=== PATIENT | female | born 1985 | race Caucasian/White ===

== ENCOUNTER 2020-03-29 11:13 | Emergency (ER) | payer MEDICAID ==
[~2020-03-29] VITALS: Ht 157.5 cm; Wt 80.0 kg
[2020-03-29 12:20] LABS: BASO # 0.1 x10^3/uL (0.0-0.2); BASO % 1 % (0-3); EOS # 0.6 x10^3/uL (0.0-0.7); EOS % 6 % (0-3); HEMATOCRIT 44.1 % (36.0-47.0); HEMOGLOBIN 14.7 g/dL (12.0-15.5); LYMPH # 2.4 x10^3/uL (1.0-4.8); LYMPH % 26 % (24-48); MEAN CORPUSCULAR HEMOGLOBIN 31 pg (25-35); MEAN CORPUSCULAR HGB CONC 34 g/dL (31-37); MEAN CORPUSCULAR VOLUME 94 fL (79-100); MONO # 0.8 x10^3/uL (0.0-1.1); MONO % 9 % (0-9); NEUT # 5.4 x10^3uL (1.8-7.7); NEUT % 58 % (31-73); PLATELET COUNT 211 x10^3/uL (140-400); RED BLOOD COUNT 4.71 x10^6/uL (3.50-5.40); RED CELL DISTRIBUTION WIDTH 14.4 % (11.5-14.5); WHITE BLOOD COUNT 9.2 x10^3/uL (4.0-11.0)
[2020-03-29 12:26] LABS: CALCIUM 8.9 mg/dL (8.5-10.1); CREATININE 0.6 mg/dL (0.6-1.0); GFR 113.8; POTASSIUM 3.9 mmol/L (3.5-5.1)
[2020-03-29 12:32] LABS: ALBUMIN 3.5 g/dL (3.4-5.0); ALBUMIN/GLOBULIN RATIO 0.9 (1.0-1.7); TOTAL BILIRUBIN 0.6 mg/dL (0.2-1.0); TOTAL PROTEIN 7.4 g/dL (6.4-8.2)
--- NOTE | 2020-03-29 12:51 | RAD ---
OB <14 WKS W/TV HISTORY: Abdominal cramping, Comparison: None. Findings: Multiple transabdominal sonographic images of the pelvis are submitted. Endometrium measured 0.7 cm in thickness, no intrauterine gestational sac identified. Uterus measured 5.7 x 8.6 x 3.8 cm. Transvaginal ultrasound: Multiple transvaginal sonographic images of the pelvis are submitted. No intrauterine gestational sac is demonstrated. Endometrium is thin about 0.6 cm. Left ovary measured 2.6 x 1.4 x 1.9 cm with normal low resistance vascularity. Right ovary measured 1.2 x 0.6 x 1.4 cm with normal low resistance vascularity and color flow. No free fluid is demonstrated. Impression: 1. Endometrium is thin, no intrauterine or extrauterine gestational sac demonstrated. There is no free fluid. Electronically signed by: Kevin Hoskins MD (03/29/2020 12:48 PM) [id number]
[2020-03-29 13:29] LABS: BACTERIA,URINE FEW /HPF (0-FEW); BILIRUBIN,URINE NEG (NEG); CLARITY,URINE HAZY; COLOR,URINE STRAW; GLUCOSE,URINE NEG (NEG); NITRITE,URINE NEG (NEG); RBC,URINE 0 /HPF (0-2); SQUAMOUS EPITHELIAL CELL,UR MANY /LPF; UROBILINOGEN,URINE 0.2 mg/dL (0.2 mg/dL); WBC,URINE OCC /HPF (0-4)
--- NOTE | 2020-03-29 13:35 | PHYS DOC ---
Past History Past Medical History: Arthritis, Other Additional Past Medical Histor: CONNECTIVE TISSUE DISEASE, SJOGREN'S SYNDROME Past Surgical History: No Surgical History Alcohol Use: None General Adult EDM: Chief Complaint: ABDOMINAL PAIN IN HPI: HPI: 35 yo presents to the ed with c/o abdominal cramping that started yesterday afternoon with increased urinary frequency. Patient states she has had 3 miscarriages and 2 elective abortions, has 2 live kids. Her friend is a pan washer and is concerned that she could have an ectopic (n/o h/o ectopic pregnancies). Last menstrual period was January 12 but states she had some vaginal spotting 4 weeks ago but not a full menses. Not taking any fertility medications, no IVF. On no control. 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 Review of Systems: Review of Systems: Constitutional: Denies fever or chills Eyes: Denies change in visual acuity HENT: Denies nasal congestion or sore throat Respiratory: Denies cough or shortness of breath Cardiovascular: Denies chest pain or edema GI: Denies nausea, vomiting, bloody stools or diarrhea : Denies dysuria, vaginal bleeding, abnormal vaginal discharge or odor Musculoskeletal: Denies back pain or joint pain Integument: Denies rash Neurologic: Denies headache, focal weakness or sensory changes Endocrine: Denies polyuria or polydipsia Lymphatic: Denies swollen glands Psychiatric: Denies depression or anxiety Heart Score: Risk Factors: Risk Factors: DM, Current or recent (<one month) smoker, HTN, HLP, family history of CAD, obesity. Risk Scores: Score 0 - 3: 2.5% MACE over next 6 weeks - Discharge Home Score 4 - 6: 20.3% MACE over next 6 weeks - Admit for Clinical Observation Score 7 - 10: 72.7% MACE over next 6 weeks - Early Invasive Strategies Allergies: Allergies: Allergies Coded Allergies Type Severity Reaction Last Updated Verified No Known Drug Allergies 03/29/20 No Physical Exam: PE: Constitutional: Well developed, well nourished, no acute distress, non-toxic appearance. [] HENT: Normocephalic, atraumatic, bilateral external ears normal, oropharynx moist, no oral exudates, nose normal. [] Eyes: PERRLA, EOMI, conjunctiva normal, no discharge. [] Neck: Normal range of motion, no tenderness, supple, no stridor. [] Cardiovascular:Heart rate regular rhythm, no murmur [] Lungs & Thorax: Bilateral breath sounds clear to auscultation [] Abdomen: Bowel sounds normal, soft, no tenderness, no masses, no pulsatile masses. [] Skin: Warm, dry, no erythema, no rash. [] Back: No tenderness, no CVA tenderness. [] Extremities: No tenderness, no cyanosis, no clubbing, ROM intact, no edema. [] Neurologic: Alert and oriented X 3, normal motor function, normal sensory function, no focal deficits noted. [] Psychologic: Affect normal, judgement normal, mood normal. [] Current Patient Data: Labs: Laboratory Tests Test 03/29/20 12:00 White Blood Count 9.2 x10^3/uL (4.0-11.0) Red Blood Count 4.71 x10^6/uL (3.50-5.40) Hemoglobin 14.7 g/dL (12.0-15.5) Hematocrit 44.1 % (36.0-47.0) Mean Corpuscular Volume 94 fL (79-100) Mean Corpuscular Hemoglobin 31 pg (25-35) Mean Corpuscular Hemoglobin Concent 34 g/dL (31-37) Red Cell Distribution Width 14.4 % (11.5-14.5) Platelet Count 211 x10^3/uL (140-400) Neutrophils (%) (Auto) 58 % (31-73) Lymphocytes (%) (Auto) 26 % (24-48) Monocytes (%) (Auto) 9 % (0-9) Eosinophils (%) (Auto) 6 % (0-3) H Basophils (%) (Auto) 1 % (0-3) Neutrophils # (Auto) 5.4 x10^3uL (1.8-7.7) Lymphocytes # (Auto) 2.4 x10^3/uL (1.0-4.8) Monocytes # (Auto) 0.8 x10^3/uL (0.0-1.1) Eosinophils # (Auto) 0.6 x10^3/uL (0.0-0.7) Basophils # (Auto) 0.1 x10^3/uL (0.0-0.2) Platelet Estimate Pending Maternal Serum HCG Beta Subunit 2 mIU/mL (0-6) Sodium Level 135 mmol/L (136-145) L Potassium Level 3.9 mmol/L (3.5-5.1) Chloride Level 105 mmol/L (98-107) Carbon Dioxide Level 21 mmol/L (21-32) Anion Gap 9 (6-14) Blood Urea Nitrogen 12 mg/dL (7-20) Creatinine 0.6 mg/dL (0.6-1.0) Estimated GFR (Cockcroft-Gault) 113.8 BUN/Creatinine Ratio 20 (6-20) Glucose Level 84 mg/dL (70-99) Calcium Level 8.9 mg/dL (8.5-10.1) Total Bilirubin 0.6 mg/dL (0.2-1.0) Aspartate Amino Transferase (AST) 18 U/L (15-37) Alanine Aminotransferase (ALT) 21 U/L (14-59) Alkaline Phosphatase 71 U/L (46-116) Total Protein 7.4 g/dL (6.4-8.2) Albumin 3.5 g/dL (3.4-5.0) Albumin/Globulin Ratio 0.9 (1.0-1.7) L Vital Signs: Vital Signs Date Time Temp Pulse Resp B/P (MAP) Pulse Ox O2 Delivery O2 Flow Rate FiO2 03/29/20 11:25 98.5 83 18 120/74 (89) 97 Room Air EKG: EKG: [] Radiology/Procedures: Radiology/Procedures: IMAGING REPORT Signed PATIENT: AMAURY GREGORY AACCOUNT: [id number] : 1985 LOCATION: ER AGE: 35 SEX: F EXAM STATUS: REG ER ORD. PHYSICIAN: DOMINIK TRAN DO REASON: abdominal cramping IN PROCEDURE: OB <14 WKS W/TV OB <14 WKS W/TV HISTORY: Abdominal cramping, Comparison: None. Findings: Multiple transabdominal sonographic images of the pelvis are submitted. Endometrium measured 0.7 cm in thickness, no intrauterine gestational sac identified. Uterus measured 5.7 x 8.6 x 3.8 cm. Transvaginal ultrasound: Multiple transvaginal sonographic images of the pelvis are submitted. No intrauterine gestational sac is demonstrated. Endometrium is thin about 0.6 cm. Left ovary measured 2.6 x 1.4 x 1.9 cm with normal low resistance vascularity. Right ovary measured 1.2 x 0.6 x 1.4 cm with normal low resistance vascularity and color flow. No free fluid is demonstrated. Impression: 1. Endometrium is thin, no intrauterine or extrauterine gestational sac demonstrated. There is no free fluid. Electronically signed by: Neftali Banks MD (03/29/2020 12:48 PM) [id number] DICTATED AND SIGNED BY: NEFTALI BANKS MD DATE: 03/29/20 1248 CC: PCP,ADILIA; BRYANTDOMINIK DO ~ Course & Med Decision Making: Course & Med Decision Making Pertinent Labs and Imaging studies reviewed. (See chart for details) Concern for abdominal cramping in a patient with a hCG of 2. Patient w/no vaginal bleeding. Transvaginal ultrasound does not detect any early intrauterine . Urinalysis is a contaminated sample, no nitrates or leukocyte esterase. Patient very comfortable, in no distress. On reevaluation patient states she had an hCG level of 1.5 approximately week and half ago at [facility]. Also reports has had a positive test. Patient will be given strict ED return precautions for abdominal pain, back pain or vaginal bleeding. Recommended follow-up in 48 hours with SHEET [employer]IC for repeat beta quant-cannot exclude any early ectopic , could possibly be a miscarriage-must trend hcg. Encouraged urgent outpatient follow-up with PMD and SHE[employer]IC. Life-threatening processes were considered but are low suspicion at this time, given history and physical exam. Pt was educated on all prescription medications and adverse effects. All patient's questions were answered and pt was stable at time of discharge. Differential includes aortic dissection, aortic aneurysm, acute coronary syndrome, surgical abdomen (appendicitis, cholecystitis, ischemic bowel, strangulated hernia, etc), bowel obstruction or volvulus, bladder outlet obstruction, gastrointestinal bleeding, inflammatory bowel disease, peptic ulcer disease, sepsis, diverticular disease, ureterolithiasis, nephrolithiasis, ovarian or testicular torsion, ectopic I spoken with the patient and her caregivers. I explained the patient's condition, diagnoses and treatment plan based on the information available to me at this time. I have answered the patient and her caregiver's questions and addressed any concerns. The patient and her caregivers have a good understanding of patient's diagnosis, condition and treatment plan as can be expected at this point. Vital signs have been stable. Patient's condition is stable and appropriate for discharge from the emergency department. Patient will pursue further outpatient evaluation with primary care physician or other designated or consulting physician as outlined in the discharge instructions. The patient and/or caregivers are agreeable to this plan of care and follow-up instructions have been explained in detail. The patient and/or caregivers have received these instructions in written form and have expressed an understanding of the discharge instructions. The patient and/or caregivers are aware that any significant change of condition or worsening of symptoms should prompt immediate return to this or the closest emergency department or call to 911. Cindy Disclaimer: Cindy Disclaimer: This electronic medical record was generated, in whole or in part, using a voice recognition dictation system. Departure Departure: Impression: Primary Impression: Abdominal cramping Additional Impression: Elevated serum hCG Disposition: HOME/RESIDENCE PRIOR TO ADM Condition: STABLE Referrals: PCP,NO (PCP) Patient Instructions: Abdominal Pain (Nonspecific), Abdominal Pain During Additional Instructions: Ben Lopez MD Obstetrics and Gynecology Address: [address] [address] Justification of Admission: Justification of Admission: Justification of Admission Dx: N/A DOMINIK TRAN DO Mar 29, 2020 13:35
[2020-03-29 13:36] LABS: PLT ESTIMATE ADEQUATE (ADEQUATE)
[2020-03-29 13:41] VITALS: BP 105/68
== END 2020-03-29 13:42 | disposition home or self-care (01) ==
LOC: ER 11:13
DX: R89.1 Abnormal level of hormones in specimens from other organs, systems and tissues (principal); M19.90 Unspecified osteoarthritis, unspecified site
CPT/HCPCS: 36415; 76801; 76817; 80053; 81001; 84702; 85025; 86850; 86900; 86901; 99284

== ENCOUNTER 2020-06-28 09:57 | Emergency (ER) | payer MEDICAID ==
[~2020-06-28] VITALS: Ht 157.5 cm; Wt 87.4 kg
[2020-06-28 10:10] VITALS: BP 100/77
--- NOTE | 2020-06-28 10:15 | PHYS DOC ---
Past History Past Medical History: Arthritis, Other Additional Past Medical Histor: CONNECTIVE TISSUE DISEASE, SJOGREN'S SYNDROME Past Surgical History: No Surgical History Alcohol Use: None Adult General HPI HPI Patient is a 35-year-old female presenting for Covid symptoms. States she has been having 5 days of headache, chills, subjective fevers, URI-like symptoms, nonproductive cough, abdominal discomfort and loose stools. Patient reports she had distant relatives visit her for Thanksgiving that were subsequently symptomatic and recently Covid positive which she did not know about until several days ago. She has no reported fever, no other concerning comorbidities. She does smoke cigarettes and has been doing this daily, no increase in sputum purulence or production but does admit mild increased shortness of breath past baseline Review of Systems Review of Systems Fourteen body systems of review of systems have been reviewed. See HPI for pertinent positives and negative responses, other maciel all other systems are negative, non-pertinent or non-contributory Allergies Allergies Allergies Coded Allergies Type Severity Reaction Last Updated Verified No Known Drug Allergies 03/29/20 No Physical Exam Physical Exam Constitutional: Well developed, well nourished, no acute distress, non-toxic appearance. HENT: Normocephalic, atraumatic, bilateral external ears normal, oropharynx moist, no oral exudates, moderate postnasal drip present, external nose normal. Eyes: PERRLA, EOMI, conjunctiva normal, no discharge. Neck: Normal range of motion, no tenderness, supple, no stridor. Cardiovascular: Heart rate regular, sinus rhythm, no murmurs rubs or gallops Lungs & Thorax: No respiratory distress, no accessory muscle use, scattered rhonchi bilaterally without any significant wheezes or other abnormalities on auscultation Abdomen: Bowel sounds normal, soft, no tenderness, no masses, no pulsatile masses. Nonsurgical abdomen, no peritoneal signs Skin: Warm, dry, no erythema, no rash. Back: No tenderness, no CVA tenderness. Extremities: No tenderness, no cyanosis, no clubbing, ROM intact, no edema. Neurologic: Alert and oriented X 3, grossly normal motor & sensory function, no focal deficits noted. Psychologic: Affect normal, judgement normal, mood normal. Current Patient Data Vital Signs Vital Signs Date Time Temp Pulse Resp B/P (MAP) Pulse Ox O2 Delivery O2 Flow Rate FiO2 06/28/20 10:10 98.9 100 20 100/77 (85) 96 Room Air EKG EKG [] Radiology/Procedures Radiology/Procedures INDICATION: Reason: shob / Spl. Instructions: / History: COMPARISON: None. FINDINGS: Single view of chest obtained. Cardiac mediastinal silhouette is unremarkable. Mild limitation at left lung base secondary to overlapping structures but no definite consolidation elsewhere in the lungs. No evidence of pulmonary edema. IMPRESSION: * No focal airspace consolidation or edema. Electronically signed by: Ivan Mays MD (06/28/2020 11:36 AM) [id number] Heart Score Risk Factors: Risk Factors: DM, Current or recent (<one month) smoker, HTN, HLP, family history of CAD, obesity. Risk Scores: Risk Factors: DM, Current or recent (<one month) smoker, HTN, HLP, family history of CAD, obesity. Course & Med Decision Making Course & Med Decision Making ABCs unremarkable in a well-appearing nontoxic patient Given symptomology, cannot rule out COVID-19 infection. Patient tested for this. I am also concerned for potential bronchitis in a smoking patient. No indication for antibiotics at this time. I have prescribed patient Medrol Dosepak, advised her to stop smoking, and quarantine at home until COVID-19 results are communicated to her. Strict return precautions were discussed with good understanding, all questions and concerns addressed prior to ER departure in stable condition Dragon Disclaimer Dragon Disclaimer This electronic medical record was generated, in whole or in part, using a voice recognition dictation system. Departure Departure: Impression: Primary Impression: Bronchitis Additional Impression: Person under investigation for COVID-19 Disposition: 01 DC HOME SELF CARE/HOMELESS Condition: STABLE Referrals: PCP,NO (PCP) Additional Instructions: You were evaluated in the Emergency Department today for a cough. Your evaluation suggests a viral infection such as Coronavirus. It is important that you continue to self isolate and practice good hygiene at home. Please follow up with your primary care physician as discussed. Return to the Emergency Department if you experience worsening cough, fever, shortness of breath, recurrent vomiting, lethargy, or any other concerning symptoms. Thank you for choosing us for your care. Home Care Instructions for Patients with Mild Respiratory Infection Most people with respiratory infections like colds, the flu, and Coronavirus Disease (COVID-19) will have mild illness and can get better with appropriate home care and without the need to see a provider. People who are elderly, , or have a weak immune system, or other medical problem are at higher risk of more serious illness or complications. It is recommended that they carefully monitor their symptoms closely and seek medical care early if their symptoms get worse. Treatment There is no specific treatment for most viruses including those that that cause the common cold and those that cause COVID-19. Sometimes there is treatment for the viruses that cause influenza if given early. Antibiotics treat infections caused by bacteria, but they do not work against viruses.Most people recover on their own from these viruses, including COVID-19. Here are steps that you can take to help you get better: Rest Drink plenty of fluids Take broj-fae-qqaogmj cold and flu medications to reduce fever and pain. Follow the instructions on the package, unless your doctor gave you instructions. Note that these medicines do not ``cure the illness and therefor e do not stop you from spreading germs. Children should not be given medication that contains aspirin (acetylsalicylic acid) because it can cause a rare but serious illness called Casimiro syndrome. Medicines without aspirin include acetaminophen (Tylenol) and ibuprofen (Advil, Motrin). Children younger than age 2 should not be given any drts-isg-sxrsqhx cold medications without first speaking with a doctor.Seeking Medical Care You should seek medical care if you are not getting better within a week, or if your symptoms get worse. If you are elderly, , have a weak immune system, or other medical problems, call your doctor right away. It is best to call ahead of time to discuss your symptoms, if possible. This may allow you to receive the advice you need by phone. By avoiding a visit to a healthcare facility, you protect yourself from getting a new infection and protect others from catching an infection from you. If you do visit a healthcare facility, put on a mask to protect other patients and staff. It is recommended that you seek medical care for serious symptoms, such as: People with potentially life-threatening symptoms should call 911. If possible, put on a facemask before emergency medical services arrive. PROTECTING OTHERS Follow the steps below to help prevent the disease from spreading to people in your home and community.Stay home when you are sick Stay home - do not go to work, school, or public areas. Stay home for at least 24 hours after your symptoms have gone away without the use of fever-reducing medicines. If you must leave home while you are sick, try to avoid using public transportation, ride-shares, and taxis. Wear a mask if possible. Separate yourself from other people and animals in your home Stay in a specific room and away from other people in your home as much as possible. Use a separate bathroom, if available. Try to stay at least 6 feet from others. Do not handle pets or other animals while you are sick. Cover your coughs and sneezes Cover your mouth and nose with a tissue when you cough or sneeze. Throw used tissues in a lined trash can; immediately wash your hands. Avoid sharing personal household items Do not share dishes, drinking glasses, cups, eating utensils, towels, or bedding with other people or pets in your home. Wash them thoroughly with soap and water after use. Clean your hands often Wash your hands often with soap and water for at least 20 seconds. If soap and water are not available, clean your hands with an alcohol-based hand parts counter specialist that contains at least 60% alcohol, covering all surfaces of your hands and rubbing them together until they feel dry. Use soap and water if your hands are visibly dirty. Clean all ``high-touch surfaces every day High touch surfaces include counters, tabletops, doorknobs, bathroom fixtures, toilets, phones, keyboards, tablets, and bedside tables. Also, clean any surfaces that may have body fluids on them. Use a household cleaning spray or wipe, according to the product label instructions. COVID-19 (Novel Coronavirus) FAQs for Inquiring Patients What do you do if you are worried that you have been exposed to COVID-19 but are without any symptoms? If you develop symptoms that may indicate an infection, contact your physician. These include fever, cough, and shortness of breath. Testing is not available for asymptomatic individuals, regardless of travel history. To reduce the chance of getting sick use general infection prevention measures such as hand washing, covering your mouth and nose when you cough or sneeze and discarding any tissues carefully, and staying home when you are sick.Can exceptions be made for patients who are really worried and want to be tested? Presently testing is available through all local Department of Public Health and Centers for Disease Control and Prevention in addition to numerous Urgent Care facilities and Pharmacies. Only patients who meet the updated COVID-19 PUI definition may be tested. We do not control or set the PUI definition or evaluation criteria. We are unable to provide testing to patients who do not meet the strict criteria. Should patients cancel or postpone an upcoming trip? The decision about travel is personal and should be made in the context of a persons underlying health conditions, reason for travel and necessity of travel. Travel insurance generally does not cover cancellations due to concerns of infectious disease outbreaks. The Center for Disease Control has a section on travel notices. Situations are changing frequently and you should monitor the site for updates. Should situations change rapidly in a foreign country while they are traveling, you could be subject to quarantine or restrictions upon return to the [place]. It is best to have a plan on how to return urgently if needed during a trip abroad. Because of how air circulates and is filtered on airplanes, most viruses do not spread easily on airplanes. CDC does not recommend use of facemasks during air travel.What other general precautions are advised? Patients should be instructed to: Avoid close contact with people who are sick. Avoid touching your eyes, nose and mouth. Stay home from work or school when they are sick. If you have a fever, you should remain home until 24 hours after fever resolves. Clean and disinfect frequently touched objects and surfaces using a regular household cleaning spray or wipe. Sneeze/cough into their elbow, not your hand. Practice frequent hand hygiene with soap and water (at least 20 seconds) or alcohol-based hand rub. Consider avoiding crowded places or mass gatherings, especially if you are immunocompromised or have chronic lung disease. There is no evidence to support transmission of COVID-19 from goods imported from [place]. Are there any special precautions that are recommended if I am ? There is not yet any information available about the susceptibility of women to COVID-19. As a general rule, women may be more susceptible to viral respiratory infections and at risk for more severe illness. The CDC guidance for COVID-19 and has answers to questions about transmission during delivery, as well as other situations. Should food, water, or medications be stockpiled? Should people telecommute? The CDC has excellent information on this. Please visit the CDCs guidance for g etting your household ready for COVID-19. What should I do if I start feeling sick at work? And what should the workplace do for anyone exposed? Anyone who is sick with a fever and cough should stay home from work until at least 24 hours after resolution of fever, regardless of concerns for COVID-19. It is still influenza (flu) season and influenza remains far more common. Scripts Methylprednisolone (MEDROL) 4 Mg Tab.ds.pk 1 PKG PO UD for BRONCHITIS, #1 PKG Prov: VINOD IZQUIERDO DO 06/28/20 Problem Qualifiers VINOD IZQUIERDO DO Jun 28, 2020 10:15
[2020-06-28 11:01] LABS: U PREG PATIENT NEGATIVE (NEG)
--- NOTE | 2020-06-28 11:39 | RAD ---
INDICATION: Reason: shob / Spl. Instructions: / History: COMPARISON: None. FINDINGS: Single view of chest obtained. Cardiac mediastinal silhouette is unremarkable. Mild limitation at left lung base secondary to overlapping structures but no definite consolidation elsewhere in the lungs. No evidence of pulmonary edema. IMPRESSION: * No focal airspace consolidation or edema. Electronically signed by: Ivan Mays MD (06/28/2020 11:36 AM) [id number]
[2020-06-28] MEDS ORDERED: METH4TAB2 PO (12:03)
--- NOTE | 2020-07-01 10:35 | NUR ---
IP: patient notified of COVID result.
== END 2020-06-28 12:15 | disposition home or self-care (01) ==
LOC: ER 09:57
DX: J40 Bronchitis, not specified as acute or chronic (principal); Z20.828 Contact with and (suspected) exposure to other viral communicable diseases; M19.90 Unspecified osteoarthritis, unspecified site
CPT/HCPCS: 71045; 81025; 99284; U0003; C9803